=== PATIENT | male | born 1955 | race Caucasian/White ===

== ENCOUNTER 2022-11-27 07:33 | Emergency (ER) | payer MEDICARE, SELFPAY ==
[2022-11-27 07:40] VITALS: BP 189/104; PULSE 66; RESP 16; TEMP 37.1; O2SAT 96; BMI 29.0
--- NOTE | 2022-11-27 09:10 | ED_ITS ---
HPI - General Adult General Date Seen: 11/27/22 Chief complaint: Unspecified Complaint, Adult Stated complaint: red dots at night Time Seen by Provider: 11/27/22 07:59 Source: patient Mode of arrival: ambulatory Limitations: no limitations History of Present Illness HPI narrative: Patient is a 67-year-old male who presents due to itchy legs for the past 7-10 days. He says it bothers him mostly at night, less so during the day. He has used hydrocortisone cream which does seem to help. He notices that if he scratches he gets ?janine, and today he noted some red spots on his upper right thigh. He takes Humira for psoriasis, psoriasis has been well controlled of late. No other new medications products or exposures. His is not having any symptoms. Related Data Allergies Allergy/AdvReac Type Severity Reaction Status Date / Time atorvastatin AdvReac Mild Muscle Pain Verified 03/04/22 09:14 Review of Systems Status of ROS: Reports: 6 or more systems reviewed and unremarkable except as noted in History and below PFSH PFS Social History Smoking Status: Never smoker Exam Narrative: Exam Narrative: Vital signs reviewed In general, alert, well-appearing male. Skin: He has a little bit of erythema in small patches on the inner right upper thigh. Otherwise, I do not see any rash specifically. I do not see anything that looks like scabies. He does not have any current hives. Nothing that looks cellulitic or infectious. Const: Vital Signs, click to edit/add: Vital Signs - 24 hr 11/27/22 07:40 11/27/22 09:20 Temperature 98.7 F Pulse Rate [Pulse Oximeter] 66 Respiratory Rate 16 Blood Pressure [Ri ght Upper Arm] 189/104 H 183/111 H Pulse Oximetry 96 Oxygen Delivery Me thod Room Air Documenting provider has reviewed patient's vital signs: yes Course Course ED Course: Overall, I am not certain what is causing his symptoms. From his description it sounds like there may be a somewhat hypersensitivity components, it is possible that he is having intermittent hives. I do not see anything that looks infectious at this time. Certainly does not look like psoriasis. He started taking Josi yesterday and I think that is a good thing to continue. I am going to put him on some prednisone for few days and see if it resolves. It does not sound like he is having any real restless leg type symptoms at this time. If symptoms do not improve however would have him up with primary care for recheck. For acute worsening, severe symptoms such as fever, severe rash etcetera return to the emergency department. Blood pressure is elevated here, recheck remains elevated. Recommend that he see his primary doctor in the next week or so to address hypertension. Vital Signs Vital signs: Initial Vital Signs Temperature 98.7 F 11/27/22 07:40 Temperature Source Temporal Artery Scan 11/27/22 07:40 Pulse Rate 66 11/27/22 07:40 Pulse Rhythm Regular 11/27/22 07:40 Respiratory Rate 16 11/27/22 07:40 Blood Pressure 189/104 H 11/27/22 07:40 Blood Pressure Mean 132 H 11/27/22 07:40 Pulse Oximetry 96 11/27/22 07:40 Oxygen Delivery Method Room Air 11/27/22 07:40 Vital Signs Temperature 98.7 F 11/27/22 07:40 Pulse Rate 66 11/27/22 07:40 Respiratory Rate 16 11/27/22 07:40 Blood Pressure 189/104 H 11/27/22 07:40 Pulse Oximetry 96 11/27/22 07:40 Oxygen Delivery Method Room Air 11/27/22 07:40 Temperature 98.7 F 11/27/22 07:40 Pulse Rate 66 11/27/22 07:40 Respiratory Rate 16 11/27/22 07:40 Blood Pressure 183/111 H 11/27/22 09:20 Pulse Oximetry 96 11/27/22 07:40 Oxygen Delivery Method Room Air 11/27/22 07:40 Discharge Plan Discharge Clinical Impression: Pruritus Patient Disposition: Home, Self-Care Condition: Stable Instructions: Itchy Skin (ED) Additional Instructions: Continue with Josi, you can use the topical hydrocortisone as well. Take the prednisone as prescribed. If symptoms persist, follow-up with your primary doctor. For acute worsening, severe rash, fevers, or other changes, return to the emergency department. Your blood pressure is elevated today, I would recommend that this be rechecked with primary care in the next week or so as you may need to be on medication for better blood pressure control. Stand Alone Forms: [employer] Info Instructions
[2022-11-27 09:20] VITALS: BP 183/111
== END 2022-11-27 10:30 | disposition home or self-care (01) ==
PROVIDERS: Emergency Provider Emergency Medicine
DX: L29.9 Pruritus, unspecified (principal)
CPT/HCPCS: 99283; 99284